=== PATIENT | female | born 1975 | race Caucasian/White ===

== ENCOUNTER 2016-09-06 10:56 | Emergency (ER) | payer SELFPAY ==
[2016-09-06] MEDS ORDERED: diazePAM INJ 10 MG/2 ML SYG ONE (11:06)
--- NOTE | 2016-09-06 11:18 | ED.PDOC ---
History of Present Illness - General Chief Complaint: Neuro Symptoms/Deficits Stated Complaint: probable seizures per ems Time Seen by Provider: 09/06/16 11:13 Source: patient, RN notes reviewed, Vital Signs reviewed, EMS Exam Limitations: no limitations - History of Present Illness Initial Comments: Patient reports she was not feeling right this morning at school. Reports her R arm started shaking and then she started having seizures. 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 Reports she had 6 seizures lasting about 20 seconds each. EMS witnessed one of these episodes and she was talking during the seizure and was not post-ictal. She started Zoloft 2 weeks ago for PTSD and feels this is due to the medication. EMS gave her Valium 5mg IV. Timing/Duration: 1/2 hour Severity: moderate Improving Factors: nothing Worsening Factors: nothing Associated Symptoms: seizures, weakness Allergies/Adverse Reactions: Allergies Morphine Adverse Reaction (Verified 09/06/16 11:32) Home Medications: Ambulatory Orders Sertraline HCl [Zoloft] 50 mg PO AC 09/06/16 Review of Systems - Review of Systems Constitutional: States: no symptoms reported. Denies: chills, fever, malaise, weakness EENTM: States: no symptoms reported. Denies: blurred vision, double vision Respiratory: States: no symptoms reported. Denies: cough, short of breath Cardiology: States: no symptoms reported. Denies: chest pain, palpitations, syncope Genitourinary: States: no symptoms reported Musculoskeletal: States: no symptoms reported Skin: States: no symptoms reported Neurological: States: see HPI, seizure Endocrine: States: no symptoms reported Hematologic/Lymphatic: States: no symptoms reported Family Medical History - Family History Mother Family History: No Known Living Status: Unknown Physical Exam - Physical Exam General Appearance: Anxious, Lethargic, Well Developed, Well Groomed, Well Hydrated, Well Nourished Eye Exam: bilateral normal ENT Exam: normal ENT inspection, hearing grossly normal, pharynx normal Neck: non-tender, full range of motion, supple, normal inspection, trachea midline Respiratory: chest non-tender, lungs clear, normal breath sounds, no respiratory distress, no accessory muscle use Cardiovascular/Chest: normal peripheral pulses, regular rate, rhythm, no edema, no gallop, no JVD, no murmur Peripheral Pulses: radial,right: 2+, radial,left: 2+, posterior tibialis,right: 2+, posterior tibialis,left: 2+ Gastrointestinal/Abdominal: normal bowel sounds, non tender, soft, no organomegaly, no pulsatile mass Extremities Exam: non-tender, normal range of motion, no evidence of injury, no edema 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 Was not post-ictal. Skin Exam: normal color, warm/dry Progress - Progress Progress: 09/06/16 11:28 During Seizure episode patient was given a second dose of Valium 5mg IV. Now resting calmly. 09/06/16 11:45 Family was let into ER by non-ER staff & patient had another episode. Advised family again that no-one will be allowed back to see patient. 09/06/16 12:48 Patient is back to normal. Reports she now feels fine. 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 Will stop Zoloft and give Rx for Valium. 09/06/16 14:11 Patient had another episode after her mother & daughter left. Will transfer to [facility] for evaluation by Neurology. Patient is agreeable to transfer. Discussed with . Dr. Phoenix @ [facility] accepted patient in transfer. - Results/Orders Results/Orders: Laboratory Tests 09/06/16 09/06/16 10:46 11:50 WBC 10.9 H RBC 4.75 Hgb 14.8 Hct 44.7 MCV 94.2 MCH 31.2 H MCHC 33.1 RDW 13.1 Plt Count 350 MPV 9.8 Absolute Neuts (auto) 6.60 Absolute Lymphs (auto) 3.60 H Absolute Monos (auto) 0.70 Absolute Eos (auto) 0.00 Absolute Basos (auto) 0.10 Neutrophils % 60.4 Lymphocytes % 32.5 Monocytes % 6.2 Eosinophils % 0.4 L Basophils % 0.5 Sodium 139 Potassium 3.8 Chloride 105 Carbon Dioxide 18 L Anion Gap 19.8 H BUN 13 Creatinine 0.81 BUN/Creatinine Ratio 16.0 Random Glucose 130 H Serum Osmolality 279.4 Calcium 9.8 Total Bilirubin 1.0 AST 33 ALT 21 Alkaline Phosphatase 45 Creatine Kinase 52 CK-MB (CK-2) 1.0 CK-MB (CK-2) % Not Reportable Troponin I < 0.02 Serum Total Protein 8.2 Albumin 4.9 Globulin 3.3 Albumin/Globulin Ratio 1.5 Urine Opiates Screen Negative Urine Barbiturates Negative Ur Phencyclidine Scrn Negative U Amphetamin/Meth Scrn Negative U Benzodiazepines Scrn Negative U Cocaine Metab Screen Negative U Cannabinoids Screen Negative - EKG/XRAY/CT EKG: Sinus, Tachy, nonspecific ST T wave Chg CT Ordered: Yes - Head: no acute intracrainial abnormality Departure - Departure Clinical Impression: Seizure disorder, Acute reaction to stress Time of Disposition: 14:13 Disposition: Transfer to Hospital Condition: Fair Departure Forms: ED Discharge - Pt. Copy, Patient Portal Self Enrollment Home Medications: Ambulatory Orders Sertraline HCl [Zoloft] 50 mg PO AC 09/06/16 Transfer to Outside Facility - Transfer Information Accepting Provider:: Dr. Phoenix Accepting Facility: [facility] Reason for Transfer: required specialist not available - Needs Neurologist
[2016-09-06] MEDS ORDERED: diazePAM INJ 10 MG/2 ML SYG IV ONE (11:19)
--- NOTE | 2016-09-06 12:27 | CT ---
Study: CT of the Head. Indication: Possible new onset seizure Technique: Axial CT images of the head were acquired without intravenous contrast. Comparison: None. Findings: No CT evidence of acute ischemia, acute hemorrhage, mass, mass effect, midline shift, or extra-axial fluid collection. Ventricles are normal in configuration without hydrocephalus. Brain parenchyma demonstrates a normal appearance for patient age. Paranasal sinuses are adequately aerated. Mastoid air cells are adequately aerated. Osseous structures and soft tissues are unremarkable. Impression: 1. No CT evidence of acute intracranial abnormality. Electronically signed by: Rashawn Gaona MD 09/06/2016 12:26 PM CDT
[2016-09-06 14:41] VITALS: BP 126/62; TEMP 98
== END 2016-09-06 14:42 | disposition short-term general hospital (02) ==
LOC: ER 10:56
DX: G40.909 Epilepsy, unspecified, not intractable, without status epilepticus (principal); F43.0 Acute stress reaction; Z88.6 Allergy status to analgesic agent; F43.10 Post-traumatic stress disorder, unspecified; Z79.899 Other long term (current) drug therapy
CPT/HCPCS: 70450; 80053; 80307; 82550; 82553; 84484; 85025; 93005; J3360

== ENCOUNTER 2017-04-29 17:42 | Emergency (ER) | payer SELFPAY ==
--- NOTE | 2017-04-29 19:01 | CT ---
EXAM DESCRIPTION: Head CLINICAL HISTORY: R side numbness - face, arm leg COMPARISON: None Available TECHNIQUE: Contiguous axial CT images of the head were obtained. Coronal and sagittal reconstructions were created from the axial data. This exam was performed according to our departmental dose-optimization program, which includes automated exposure control, adjustment of the mA and/or kV according to patient size and/or use of iterative reconstruction technique. FINDINGS: There is no evidence of acute mass, mass effect, midline shift or hemorrhage. The ventricles and extra-axial CSF spaces are unremarkable. The brain parenchyma appears normal for the patient's age. No acute abnormalities of the bones is seen. IMPRESSION: No acute intracranial abnormality. Electronically signed by: Hi Bhardwaj 04/29/2017 7:00 PM SENIOR BUDGET ANALYST
--- NOTE | 2017-04-29 19:02 | ED.PDOC ---
History of Present Illness - General Chief Complaint: Neuro Symptoms/Deficits Stated Complaint: R facial numbnes, R-sided heaviness post seizure Time Seen by Provider: 04/29/17 17:45 Source: patient, RN notes reviewed, Vital Signs reviewed Exam Limitations: no limitations - History of Present Illness Initial Comments: Patient presents to ER with c/o R facial numbness and R arm and leg "heaviness" . Symptoms started after lunch today with a tremor in her R arm. She then got dizzy. She thought she was going to have a seizure again. She went to PCP's office and they sent her here. She is concerned that she is having a stroke. She was seen earlier in the year with seizures, was transferred to [facility] and had a work-up done with neurology. 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 She denies any new or recent stressors. She did get injections for her headache a week ago but does not feel they have helped. She has a history of migraines. Timing/Duration: 4-6 hours Severity: moderate Episode Description: see above Improving Factors: nothing Worsening Factors: nothing Associated Symptoms: numbness in legs/feet, paresthesia, seizures Allergies/Adverse Reactions: Allergies Morphine Adverse Reaction (Verified 04/29/17 17:53) Other Itching Home Medications: Ambulatory Orders Trazodone HCl 75 mg PO BEDTIME 04/29/17 cloNAZepam [Klonopin] 0.5 mg PO BEDTIME 04/29/17 [id number] [Deplin 7.5] 1 cap PO DAILY 04/29/17 Review of Systems - Review of Systems Constitutional: States: no symptoms reported. 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 Hx Stroke: No Hx Dementia: No Hx Asthma: No Hx of COPD: No Hx Cardiac Disorders: No Hx Congestive Heart Failure: No Hx Pacemaker: No Hx Hypertension: No Hx Thyroid Disease: No Hx Diabetes: No Hx Gastroesophageal Reflux: No Hx Renal Disease: No Hx Cancer: No Hx of HIV: No Hx Hepatitis C: No Hx MRSA: No Surgical History: other - Vaccination History Hx Tetanus, Diphtheria Vaccination: Yes Hx Influenza Vaccination: No Hx Pneumococcal Vaccination: Yes - Social History Hx Tobacco Use: No Hx Chewing Tobacco Use: No Hx Alcohol Use: No Hx Substance Use: No Hx Substance Use Treatment: No Hx Depression: Yes Hx Physical Abuse: No Hx Emotional Abuse: No Hx Suspected Abuse: No - Female History Patient is a Female of Child Bearing Age (10 -59 yrs old): No - no menses post ablation Patient : No Family Medical History - Family History Mother Family History: No Known Living Status: Still Living Physical Exam - Physical Exam General Appearance: Alert, Anxious - tearful, Well Developed, Well Groomed, Well Hydrated, Well Nourished Eye Exam: bilateral normal ENT Exam: normal ENT inspection, hearing grossly normal, TMs normal, pharynx normal Neck: non-tender, full range of motion, supple, normal inspection, trachea midline Respiratory: lungs clear, normal breath sounds, no respiratory distress, no accessory muscle use Cardiovascular/Chest: normal peripheral pulses, regular rate, rhythm, no edema, no gallop, no JVD, no murmur Peripheral Pulses: radial,right: 2+, radial,left: 2+, posterior tibialis,right: 2+, posterior tibialis,left: 2+ Gastrointestinal/Abdominal: normal bowel sounds, non tender, soft, no organomegaly Extremities Exam: non-tender, normal range of motion, no evidence of injury Mental Status: alert, oriented x 3, 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 Normal sensation to light touch bilateral face Motor/Sensory: no pronator drift, sensory deficit - decreased sensation to light touch RLE, weak motor strength RUE - 3+/5, tremor with elevation of R arm Skin Exam: normal color, warm/dry Comments: Vital Signs 04/29/17 17:47 Temperature 99.0 F Pulse Rate [ 103 H Left Radial] Respiratory 18 Rate Blood Pressure 138/85 [Left Arm] O2 Sat by Pulse 98 Oximetry Progress - Progress Progress: 04/29/17 19:20 Discussed normal results with patient. She is still c/o of a COOPER but her neurologic symptoms have resolved. Will give Toradol 30mg IV for COOPER since she is allergic to Morphine. 04/29/17 20:10 Still w/ COOPER. Neuro exam is normal Morphine caused her to itch. Will try Dilaudid and see if that will break her COOPER. 04/29/17 21:07 COOPER is improved 04/29/17 21:24 Discussed her symptoms and that she most likely needs a more thorough workup by a Neurologist. - Results/Orders Results/Orders: Laboratory Tests 04/29/17 04/29/17 04/29/17 18:35 18:35 19:00 WBC 7.0 RBC 4.48 Hgb 13.9 Hct 41.4 MCV 92.3 MCH 31.0 MCHC 33.5 RDW 13.3 Plt Count 247 MPV 9.0 Absolute Neuts (auto) 5.40 Absolute Lymphs (auto) 1.10 Absolute Monos (auto) 0.40 Absolute Eos (auto) 0.00 Absolute Basos (auto) 0.00 Neutrophils % 76.9 Lymphocytes % 15.8 L Monocytes % 5.9 Eosinophils % 0.7 L Basophils % 0.7 Sodium 139 Potassium 3.7 Chloride 107 Carbon Dioxide 24 Anion Gap 11.7 L BUN 10 Creatinine 0.81 BUN/Creatinine Ratio 12.3 Random Glucose 114 H Serum Osmolality 277.4 Calcium 8.9 Total Bilirubin 0.4 AST 19 ALT 12 Alkaline Phosphatase 37 L Serum Total Protein 7.5 Albumin 4.5 Globulin 3.0 Albumin/Globulin Ratio 1.5 Urine Color Yellow Urine Appearance Clear Urine pH 7.0 Ur Specific [place] 1.015 Urine Protein Negative Urine Glucose (UA) Negative Urine Ketones Negative Urine Blood Negative Urine Nitrite Negative Urine Bilirubin Negative Urine Urobilinogen 0.2 Ur Leukocyte Esterase Negative Urine RBC 0 Urine WBC 0 Ur Epithelial Cells 0 Urine Bacteria 0 - EKG/XRAY/CT CT Ordered: Yes - Head: No acute intracranial abnormality per Radiologist Departure - Departure Clinical Impression: Stroke-like symptoms Migraine Qualifiers: Migraine type: without aura Status migrainosus presence: without status migrainosus Intractability: not intractable Qualified Code(s): G43.009 - Migraine without aura, not intractable, without status migrainosus Time of Disposition: 21:27 Disposition: Discharge to Home or Self Care Condition: Good Departure Forms: ED Discharge - Pt. Copy, Patient Portal Self Enrollment Instructions: DI for Migraine Diet: resume usual diet Activity: increase activity as tolerated Referrals: Taras Goins MD [Primary Care Provider] - 1-5 Days Home Medications: Ambulatory Orders Trazodone HCl 75 mg PO BEDTIME 04/29/17 cloNAZepam [Klonopin] 0.5 mg PO BEDTIME 04/29/17 [id number]-[id number] [Deplin 7.5] 1 cap PO DAILY 04/29/17
[2017-04-29] MEDS ORDERED: KETOROLAC TROMETHAMINE INJ 30 MG/ML VIAL IV ONE (19:20)
[2017-04-29] MEDS ORDERED: HYDROmorphone HCL INJ 2 MG/ML VIAL IV ONE (20:11)
[2017-04-29] MEDS ORDERED: ONDANSETRON INJ 4 MG/2 ML VIAL IV ONE (20:11)
[2017-04-29] MEDS ORDERED: SODIUM CHLORIDE 0.9% 1000ML 1,000 ML IVS ONE (20:11)
[2017-04-29 21:53] VITALS: BP 115/71; TEMP 97.3; O2SAT 96
== END 2017-04-29 21:53 | disposition home or self-care (01) ==
LOC: ER 17:42
DX: G43.009 Migraine without aura, not intractable, without status migrainosus (principal); R20.0 Anesthesia of skin; Z88.6 Allergy status to analgesic agent; Z79.899 Other long term (current) drug therapy
CPT/HCPCS: 36415; 70450; 80053; 81001; 85025; J1170; J1885; J2060; J2405; J7030

== ENCOUNTER → 2017-08-12 | Outpatient (CLI) | payer BC ==
--- NOTE | 2017-08-12 16:32 | MRI ---
EXAM DESCRIPTION: Brain w/o Contrast: MRI. CLINICAL HISTORY: BLURRY VISION COMPARISON: CT scan of the head 09/06/2016 and 04/29/2017. TECHNIQUE: Multiplanar, high-field MRI unit, multiple diffusion sequences, multiple conventional sequences without contrast. FINDINGS: Focal bright FLAIR and T2-weighted signal in the right frontal white matter abutting the frontal horn of the right lateral ventricle and the anterior head of the caudate nucleus. This appears to be associated with the right frontal rucker radiata. Low signal on T1-weighted sequence with no diffusion restriction. No hemorrhage or mass effect. Normal signal in the bilateral basal ganglia. No hemorrhage, no cerebral edema, no mass-effect. Normal signal in the brainstem and cerebellar hemispheres. No hemorrhage, no cerebral edema, no mass-effect. Concordance of the diffusion and non-diffusion sequences with no diffusion restriction. Cortical sulci, ventricles, and other CSF spaces, and the subdural spaces are normally configured. No effacement or displacement. No midline shift. No extra-axial hemorrhage. Normal flow signal void in the major vessels of the [place], and the venous sinuses. IACs are symmetric bilaterally. Normal signal in the bilateral mastoid air cells. No mass effect in the bilateral cerebellopontine angles. Pituitary gland occupies most of the sella. Base of the cerebellar tonsils is 2 mm below the foramen magnum. Multiple cells with mucoperiosteal thickening in the paranasal sinuses. The bony calvarium is intact. IMPRESSION: 1. Focal lesion abutting the frontal horn of the right lateral ventricle, right frontal horn white matter, rucker radiata, and head of the caudate nucleus. Differential includes focal demyelinating process, focal vasculitis, focal migraine sequela, or focal inflammatory process. No diffusion restriction in this lesion. Consider follow-up MRI scan with gadolinium IV contrast and thin sections. 2. No hemorrhage, no cerebral edema, no mass effect, no midline shift. 3. Chronic paranasal sinusitis. More involved on the right side. Electronically signed by: Hi Solis MD 08/12/2017 4:31 PM MARKETING CONTENT SPECIALIST
== END ==
LOC: MRI 08:46
PROVIDERS: ATTEND Family Medicine
DX: G43.109 Migraine with aura, not intractable, without status migrainosus (principal); J32.9 Chronic sinusitis, unspecified; H53.9 Unspecified visual disturbance; F32.89 Other specified depressive episodes

== ENCOUNTER → 2017-08-17 | Outpatient (CLI) | payer BC ==
--- NOTE | 2017-08-17 09:28 | MRI ---
EXAM DESCRIPTION: Brain w/Contrast: MRI. CLINICAL HISTORY: BLURRY VISION COMPARISON: MRI scan of the brain without contrast 08/12/2017. TECHNIQUE: Multiplanar, high-field MRI unit, multiple diffusion sequences, multiple conventional sequences with gadolinium IV contrast. FINDINGS: Again noted is focal bright T2-weighted signal in the periventricular white matter abutting the frontal horn of the right lateral ventricle and the head of the right caudate nucleus. This does not enhance on the T2 contrast axial sequence. It is low signal on T1 axial sequence with contrast. No contrast enhancement on the 3-D axial and coronal postcontrast sequences. No cerebral edema, no mass-effect. Normal intra-axial and extra-axial contrast on the remainder of the study. Normal contrast enhancement in the major vessels of the [place], and the venous sinuses. Mucoperiosteal thickening right maxillary antrum. IMPRESSION: 1. The small signal abnormality in the periventricular white matter abutting the frontal horn of the right lateral ventricle the rucker radiata in the head of the right caudate nucleus does not enhance. This could indicate an old brain ischemic injury, inactive inflammatory or vasculitis, or inactive focal demyelination. Correlate with clinical history and continued clinical follow-up. 2. Normal contrast enhancement in the remainder of the intra-axial and extra-axial brain. Chronic sinusitis right maxillary antrum. Electronically signed by: Hi Solis MD 08/17/2017 9:28 AM [employer]
== END ==
LOC: MRI 07:31
PROVIDERS: ATTEND Family Medicine
DX: H53.9 Unspecified visual disturbance (principal)

== ENCOUNTER → 2017-08-19 | Outpatient (CLI) | payer BC | LOC: GMAM 12:43 | PROVIDERS: ATTEND Family Medicine | DX: H53.9 Unspecified visual disturbance (principal) ==

== ENCOUNTER → 2017-09-19 | Outpatient (CLI) | payer BC | END | disposition home or self-care (01) | LOC: GMAM 14:18 | PROVIDERS: ATTEND Family Medicine | DX: R56.9 Unspecified convulsions (principal) ==

== ENCOUNTER 2017-09-20 12:25 | Outpatient (CLI) | payer BC ==
[~2017-09-20 12:25] MED LIST: MAGNESIUM SULFATE INJ 1 GM/2 ML VIAL IVPB ONE; SODIUM CHLORIDE 0.9% 250ML 250 ML IVS ONE; SODIUM CHLORIDE 0.9% 50ML 50 ML IVPB ONE
[2017-09-20 13:44] VITALS: BP 100/69; TEMP 97.1; O2SAT 96
== END 2017-09-20 14:20 | disposition home or self-care (01) ==
LOC: AMB 12:25
PROVIDERS: ATTEND Family Medicine
DX: E83.42 Hypomagnesemia (principal)
CPT/HCPCS: A4216; J3475

== ENCOUNTER → 2017-09-29 | Outpatient (CLI) | payer BC | LOC: GMAM 16:47 | PROVIDERS: ATTEND Family Medicine | DX: E83.42 Hypomagnesemia (principal) ==

== ENCOUNTER → 2017-10-04 | Outpatient (CLI) | payer BC | LOC: GMAM 15:04 | PROVIDERS: ATTEND Family Medicine | DX: G40.301 Generalized idiopathic epilepsy and epileptic syndromes, not intractable, with status epilepticus (principal) ==

== ENCOUNTER → 2017-10-27 | Outpatient (CLI) | payer BC | LOC: LAB 13:50 | DX: R26.9 Unspecified abnormalities of gait and mobility (principal) ==

== ENCOUNTER → 2018-07-06 | Outpatient (CLI) | payer BC | LOC: GMAJS 17:34 | PROVIDERS: ATTEND Physician Assistant | DX: R50.9 Fever, unspecified (principal); R53.83 Other fatigue ==

== ENCOUNTER → 2018-09-05 | Outpatient (CLI) | payer BC | LOC: GMAM 11:14 | PROVIDERS: ATTEND Family Medicine | DX: R10.11 Right upper quadrant pain (principal) ==

== ENCOUNTER → 2018-09-05 | Outpatient (CLI) | payer BC ==
--- NOTE | 2018-09-05 21:05 | US ---
EXAM DESCRIPTION: Gall Bladder: ULTRASOUND. CLINICAL HISTORY: RUQ ABDOMINAL PAIN COMPARISON: None. TECHNIQUE: Transabdominal scanning: Daigle-scale and Doppler modes. FINDINGS: Gallbladder: Contains sludge but no definite stones. No fluid around the gallbladder. Borderline wall thickening 3 mm tender with transducer pressure. Common bile duct: caliber 4.1 mm within normal limits. Liver: Minimally increased echogenicity; contour liver capsule smooth where seen. No fluid around the liver. Intrahepatic biliary ducts normal caliber. Doppler hepatopedal flow portal vein.. Long axis right lobe 11.55 cm. Pancreas: normal size and echogenicity. Duct not seen. Aorta: Not measured. Right kidney cortical thinning, less than 10 mm, with increased echogenicity. Poor differentiation between the cortex and the medullary kidney. No hydronephrosis. 10.3 cm Long axis. IMPRESSION: 1. Minimal steatosis of the liver with normal size. Normal portal vein and ducts. Smooth capsule with no ascites. 2. Gallbladder with borderline wall thickening and tender with transducer pressure. Possible sludge but no definite stones. No free fluid. Normal diameter of the common bile duct. 3. Pancreas is unremarkable. Electronically signed by: Hi Solis MD 09/05/2018 9:01 PM CDT
== END ==
LOC: US 10:29
PROVIDERS: ATTEND Family Medicine
DX: R10.11 Right upper quadrant pain (principal); K76.0 Fatty (change of) liver, not elsewhere classified

== ENCOUNTER 2018-09-07 13:35 | Day surgery (SDC) | payer BC ==
[~2018-09-07 13:35] MED LIST changes: +DEXAMETHASONE INJ 10 MG/ML VIAL ONE; +GLYCOPYRROLATE 0.2 MG/ML VIAL ONE; +KETOROLAC TROMETHAMINE INJ 30 MG/ML VIAL ONE; +LACTATED RINGERS 1,000 ML ONE; +LIDOCAINE 1% 10 ML VIAL INJ ONE; -MAGNESIUM SULFATE INJ 1 GM/2 ML VIAL IVPB ONE; +MIDAZOLAM INJ 2 MG/2 ML VIAL ONE; +ONDANSETRON INJ 4 MG/2 ML VIAL ONE; +PROPOFOL 200 MG/20 ML VIAL IV ONE; +ROCURONIUM BROMIDE 10 MG/ML VIAL ONE; +SODIUM CHL 0.9% 100ML MINI-BAG 100 ML IVPB ONE; -SODIUM CHLORIDE 0.9% 250ML 250 ML IVS ONE; +SODIUM CHLORIDE 0.9% 50 ML VIAL ONE; -SODIUM CHLORIDE 0.9% 50ML 50 ML IVPB ONE; +ceFAZolin SODIUM 1 GM VIAL ONE; +ePHEDrine SULF 50 MG/ML ONE; +fentaNYL CITRATE INJ 50 MCG/ML AMP ONE
[2018-09-07] MEDS ORDERED: BUPIVACAINE 0.25% W/EPI 50 ML VIAL INJ ONE (13:43)
[2018-09-07] MEDS ORDERED: HEPARIN SODIUM (PORCINE) 10,000 UNITS/ML VIAL ONE (13:43)
[2018-09-07] MEDS ORDERED: ACETAMINOPHEN IV 1000MG 100 ML ONE (14:28)
[2018-09-07] MEDS ORDERED: SUGAMMADEX SODIUM 200 MG/2 ML VIAL IV ONE (15:24)
[2018-09-07] MEDS ORDERED: LACTATED RINGERS 1,000 ML ONE (15:45)
[2018-09-07] MEDS ORDERED: PROMETHAZINE HCL INJ 25 MG/ML VIAL ONE ×2 (16:01→16:02)
[2018-09-07] MEDS ORDERED: HYDROmorphone HCL INJ 2 MG/ML VIAL ONE (16:09)
--- NOTE | 2018-09-07 17:18 | OP ---
DATE OF PROCEDURE: 09/07/18 PREOPERATIVE DIAGNOSIS: 1. Right upper quadrant abdominal pain. 2. Cholecystitis. 3. Fatty infiltration of the liver. POSTOPERATIVE DIAGNOSIS: 1. Right upper quadrant abdominal pain. 2. Chronic cholecystitis. 3. Fatty infiltration of the liver. 4. Cholesterol polyp. SURGICAL PROCEDURE: 1. Laparoscopic cholecystectomy with intraoperative cholangiography using fluoroscopy. 2. Wedge biopsy right lobe of the liver. SURGEON: Kalen Maria M.D. MANAGER OF SALES: None. ANESTHESIA: Local infiltration of 0.25% Marcaine with epinephrine and general and laryngeal tracheal anesthesia. INDICATION FOR SURGERY: The patient is a 43 year-old female who has had several episodes of right upper quadrant pain with radiation to the back associated with fatty foods. She had an ultrasound which revealed a tender gallbladder with mildly thickened wall and what appeared to be sludge. There were no stones. Her bile duct was normal. She also was seen to have fatty infiltration of the liver on ultrasound and she was brought to the [facility] today for cholecystectomy with wedge biopsy of the liver and cholangiography after the risks, benefits, and alternatives to the procedure were discussed with the patient and her earlier today. FINDINGS AT TIME OF PROCEDURE: Noted thickened gallbladder wall with thick bile. There was a cholesterol polyp stuck to the wall of the inside of the gallbladder. Intraoperative cholangiography revealed free flow into the duodenum with no filling defects or strictures noted. There was pancreatogram identified. No other pathology other than there were some adhesions from the omentum to the liver posteriorly. The wedge biopsy of the liver did not appear to be significantly involved with fatty infiltration with biopsies pending. DESCRIPTION OF PROCEDURE: After adequate general endotracheal anesthesia was obtained, the patient was placed in the supine position. She was prepped and draped in the usual sterile manner. At this time a surgical time out was taken. The infraumbilical area was infiltrated with local anesthesia. Curvilinear incision was fashioned and carried down through the subcutaneous tissue to the midline fascia. Traction sutures were placed on either side of the midline. A small incision was made in the midline fascia and the peritoneum was opened bluntly. Ezequiel trocar was introduced under direct vision into the abdominal cavity and fixed in place with the 20 mL balloon. CO2 was then insufflated until a pressure of 12 mmHg was reached and the abdomen was tympanitic in all four quadrants. When this was done, the laparoscope was introduced. The abdomen was inspected with the previously noted findings. The patient was then placed in reverse Trendelenburg position, turned to the left side. The upper abdominal ports were placed under direct vision. The gallbladder was grasped, retracted anteriorly and laterally. The neck of the gallbladder was retracted laterally. The triangle of Calot was then explored with the cystic duct and cystic artery identified and isolated. The cystic duct was hemoclipped once proximally. The cystic artery was hemoclipped twice proximally, and a second what appeared to be an arterial branch was clipped once and divided. When this was done, a small incision was made in the cystic duct. The cholangiogram catheter was introduced through a separate stab wound in the right upper quadrant, introduced into the cystic duct and clipped in place. Cholangiograms were then taken using fluoroscopy which revealed free flow into the duodenum with no filling defects or strictures noted. At this point the cystic duct catheter was removed. The cystic duct was hemoclipped three times distally and divided between the hemoclips. The cystic artery was divided. The gallbladder was then dissected free from the gallbladder bed of the liver using electrocautery without difficulty. It was removed from the infraumbilical port site in the usual manner under direct vision and taken to the back table. At this point the infraumbilical port was replaced. The subhepatic space and subphrenic space were irrigated copiously with saline. The effluent was noted to be clear. At this point the cautery was turned up to 50 coag only and a wedge biopsy of the right lobe of the liver was performed with sharp scissors. Hemostasis was obtained with electrocautery without difficulty. The specimen was removed from the field. At this point again the subhepatic space and subphrenic space and the amarilis hepatis were all irrigated copiously with saline and carefully inspected. There was no bleeding identified. No bile leak identified. So at this point the upper abdominal ports were removed under direct vision and good hemostasis was noted there. The CO2, the laparoscope and the infraumbilical port were removed. The infraumbilical port site fascia was approximated with a single [id number] suture of 0 Vicryl. Subcutaneous tissue was irrigated with saline. Skin edges were approximated with 4-0 Vicryl subcuticular sutures, benzoin and Steri-Strips. Sterile dressings were applied. The patient was awakened and taken to the Recovery Room in good and stable condition. Estimated blood loss was less than 25 mL. All sponge, needle and instrument counts were correct. #[id number] [facility]
[2018-09-07] MEDS ORDERED: traMADol HCL 50 MG TAB ONE (17:28)
[2018-09-07 19:06] VITALS: BP 86/50; TEMP 98.6; O2SAT 96
--- NOTE | 2018-09-11 07:23 | RAD ---
w EXAM DESCRIPTION: Fluoroscopy Up to 1Hr CLINICAL HISTORY: IOC. Intraoperative cholangiogram for cholecystectomy. IMPRESSION: 2 Fluoroscopic image/s were acquired by the referring physician intraoperatively. No complicating process is demonstrated. Please refer to surgical report for specific details. Fluoroscopy time less than 1 minute. Electronically signed by: Dalton Young MD 09/11/2018 7:20 AM CDT
== END 2018-09-07 18:57 | disposition home or self-care (01) ==
LOC: AMB 13:35
PROVIDERS: ATTEND Surgery
DX: K81.1 Chronic cholecystitis (principal); K82.8 Other specified diseases of gallbladder; K83.1 Obstruction of bile duct; K76.0 Fatty (change of) liver, not elsewhere classified; G40.409 Other generalized epilepsy and epileptic syndromes, not intractable, without status epilepticus; F41.9 Anxiety disorder, unspecified; G43.909 Migraine, unspecified, not intractable, without status migrainosus; F32.9 Major depressive disorder, single episode, unspecified; Z88.8 Allergy status to other drugs, medicaments and biological substances; Z79.899 Other long term (current) drug therapy
CPT/HCPCS: 00790; 47001; 47563; 76000; A4216; J0690; J1100; J1170; J1644; J1885; J2250; J2405; J2550; J3010; J3490; J7050; J7120

== ENCOUNTER → 2018-09-13 | Outpatient (CLI) | payer BC ==
--- NOTE | 2018-09-14 09:46 | MRI ---
EXAM DESCRIPTION: MRI right shoulder CLINICAL HISTORY: Shoulder pain. Limited range of motion COMPARISON: None. TECHNIQUE: Multiplanar, multisequence MR images of the right shoulder FINDINGS: Long head biceps tendon normal in the bicipital groove and intra-articular. Abnormal signal at the base of the labral anchor/superior labrum with minimal irregularity of the base of the labrum and subjacent superior glenoid rim. Minimal osseous edema. The remainder of the labrum is normal No glenohumeral chondrosis/chronic osteochondral lesion. Minimal joint fluid without synovitis or intra-articular body Rotator cuff tendons and muscles are normal Normal acromioclavicular joint IMPRESSION: Subtle tear of the labral anchor, type II SLAP Electronically signed by: Taras Ann MD 09/14/2018 9:43 AM CDT
== END ==
LOC: MRI 10:25
PROVIDERS: ATTEND Family Medicine
DX: S43.431A Superior glenoid labrum lesion of right shoulder, initial encounter (principal)

== ENCOUNTER → 2018-12-29 | Outpatient (CLI) | payer BC ==
--- NOTE | 2018-12-29 10:53 | US ---
EXAM DESCRIPTION: Liver ultrasound CLINICAL HISTORY: ELEVATED LFT COMPARISON: Previous gallbladder sonogram September 05, 2018 TECHNIQUE: Right upper quadrant ultrasound was performed with special attention to the liver. FINDINGS: Pancreas: Limited visualization due to overlying bowel gas. Aorta/inferior vena cava: No aortic aneurysm. Normal inferior vena cava. Liver: The liver is homogeneous in texture with normal echogenicity of the hepatic parenchyma. No focal liver lesion or intrahepatic bile duct dilatation. No liver surface irregularity. Normal appearance of the portal vein and hepatic veins. Gallbladder: Surgically absent. Common bile duct: Normal caliber measuring 6.5 mm. Right kidney: Renal length is 9.5 cm. Normal cortical echogenicity. Cortical thickness is normal. No hydronephrosis is seen. No renal mass or shadowing calculus. IMPRESSION: No diagnostic abnormality is identified on sonographic examination of the right upper quadrant. Electronically signed by: Edwin Chen MD 12/29/2018 10:50 AM CDT
== END ==
LOC: US 10:01
PROVIDERS: ATTEND Physician Assistant
DX: R94.5 Abnormal results of liver function studies (principal)

== ENCOUNTER → 2019-01-04 | Outpatient (CLI) | payer BC | LOC: GMAM 10:53 | PROVIDERS: ATTEND Family Medicine | DX: R56.9 Unspecified convulsions (principal) ==

== ENCOUNTER → 2019-01-08 | Outpatient (CLI) | payer BC | LOC: GMAM 18:30 | PROVIDERS: ATTEND Family Medicine | DX: R94.5 Abnormal results of liver function studies (principal) ==

== ENCOUNTER → 2019-01-12 | Outpatient (CLI) | payer BC ==
--- NOTE | 2019-01-12 16:03 | MRI ---
CLINICAL HISTORY PROVIDED: OTHER ACUTE PANCREATITIS TECHNIQUE: Multiplanar, multisequence MR images of the abdomen.. COMPARISON: None available. FINDINGS: Normal hepatic parenchymal signal and morphology. No biliary dilatation. No focal hepatic lesion. Cholecystectomy., Prominence of the common bile duct is due to reservoir phenomenon. The spleen and adrenal glands are normal. Normal pancreatic parenchymal signal and morphology. No peripancreatic edema like signal. No fluid collection. Normal pancreatic ductal caliber. Normal kidneys. No hydronephrosis. No evidence of bowel obstruction. No adenopathy. No focal fluid collection. Normal caliber abdominal aorta. No focal marrow signal abnormality. IMPRESSION: Normal pancreas. No findings to suggest pancreatitis. Electronically signed by: Brian Boucher MD 01/12/2019 4:02 PM CDT
== END ==
LOC: MRI 09:00
DX: K85.80 Other acute pancreatitis without necrosis or infection (principal); R07.2 Precordial pain; G40.901 Epilepsy, unspecified, not intractable, with status epilepticus